=== PATIENT | female | born 1950 | race American Indian/Alaskan Native ===

== ENCOUNTER 2021-02-05 12:51 | Observation (INO) | payer MEDICARE ==
--- NOTE | 2021-02-05 16:02 | Emergency Department Report ---
HPI - General Chief Complaint: Fall Time Seen by Provider: 02/05/21 15:48 - HPI HPI: This is a 70-year-old -[place] female presents to the emergency department via EMS from home with a complaint of the patient having multiple falls over the past few days, as well as some generalized weakness and fatigue. The patient has a history of dementia and has no complaints at this time. I spoke with the patient's daughter, Sheree Dias, who provided collateral information. On Tuesday night, 3 days ago, the patient ate some "old food." That caused her to have some nausea, vomiting and diarrhea going into Tuesday. EMS was called and came to the house to see the patient. They felt that she was dehydrated and gave her some IV fluid but the patient did not require transfer at that time. The nausea with vomiting has stopped but the patient still continues to have some diarrhea or loose stools. Patient's daughter says that she has been sleeping a lot and not wanting to get up out of bed. Because of this she has had some "accidents" in terms of incontinence. Her daughter says that when the patient falls, that she does so slowly, and there is no concerned that she may have hit her head and there has been no loss of consciousness. The patient ambulates with a cane when she goes outside but has been in the house mostly. The patient is vaccinated against COVID-19. Her primary care physician is Dr. Freddie Arciniega. Her daughter also says that today the patient appeared to have some shortness of breath and was given a breathing treatment when EMS arrived. ED Past Medical Hx - Past Medical History Previous Medical History?: Yes Hx Hypertension: Yes Hx Arthritis: Yes Hx Seizures: Yes Hx Dementia: Yes Hx HIV: Yes Additional medical history: Dementia - Social History Smoking Status: Former Smoker - Medications Home Medications: Home Medications Medication Instructions Recorded Confirmed Last Taken Type Amlodipine Besylate 10 mg PO DAILY 05/23/13 02/06/21 05/23/13 09:00 History 10 mg Metoprolol Tartrate 25 mg PO BID 05/23/13 02/06/21 05/23/13 09:00 History 25 mg Nortriptyline HCl 25 mg PO DAILY 05/23/13 02/06/21 05/23/13 09:00 History 25 mg Pravastatin Sodium 40 mg PO DAILY 05/23/13 02/06/21 05/23/13 09:00 History 40 mg carBAMazepine [TEGretol] 200 mg PO BID 05/23/13 02/06/21 05/23/13 09:00 History 200 mg ED Review of Systems ROS: Stated complaint: FALL Other details as noted in HPI Comment: All other systems reviewed and negative Constitutional: weakness. denies: chills, fever Eyes: denies: eye pain, vision change ENT: denies: ear pain, throat pain Respiratory: shortness of breath. denies: cough Cardiovascular: denies: chest pain, palpitations Gastrointestinal: nausea, vomiting, diarrhea. denies: abdominal pain Genitourinary: denies: dysuria, discharge Musculoskeletal: denies: back pain, arthralgia Skin: denies: rash, lesions Neurological: denies: headache, numbness Physical Exam - Physical Exam Vital Signs: Vital Signs 02/05/21 13:05 Temperature 99.1 F Pulse Rate 72 Respiratory 16 Rate Blood Pressure 138/63 [Left] O2 Sat by Pulse 99 Oximetry Physical Exam: GENERAL: The patient is well-developed well-nourished. HENT: Normocephalic. Atraumatic. Patient has moist mucous membranes. EYES: Extraocular motions are intact. No nystagmus. NECK: Supple. Trachea is midline. CHEST/LUNGS: Clear to auscultation. There is no respiratory distress noted. HEART/CARDIOVASCULAR: Regular. There is no tachycardia. There is no murmur. ABDOMEN: Abdomen is soft, nontender. Patient has normal bowel sounds. There is no abdominal distention. SKIN: Skin is warm and dry. NEURO: The patient is awake and cooperative, but confused. AAO x1 to person, but not place or time. The patient has no focal neurologic deficits. Normal speech. MUSCULOSKELETAL: There is no tenderness or deformity. No tenderness with compression of the pelvis. There is no limitation range of motion. BACK: No midline thoracic or lumbar tenderness to palpation. ED Course Vital Signs 02/05/21 13:05 Temperature 99.1 F Pulse Rate 72 Respiratory 16 Rate Blood Pressure 138/63 [Left] O2 Sat by Pulse 99 Oximetry ED Medical Decision Making - Lab Data Result diagrams: 02/06/21 08:18 02/06/21 08:18 Lab Results 02/05/21 02/05/21 02/05/21 Range/Units 16:56 16:56 16:56 WBC 4.3 L (4.5-11.0) K/mm3 RBC 3.88 (3.65-5.03) M/mm3 Hgb 11.2 (10.1-14.3) gm/dl Hct 32.9 (30.3-42.9) % MCV 85 (79-97) fl MCH 29 (28-32) pg MCHC 34 (30-34) % RDW 15.8 H (13.2-15.2) % Plt Count 109 L (140-440) K/mm3 Lymph % (Auto) 16.6 (13.4-35.0) % [place] % (Auto) 8.8 H (0.0-7.3) % Eos % (Auto) 0.7 (0.0-4.3) % Baso % (Auto) 0.2 (0.0-1.8) % Lymph # (Auto) 0.7 L (1.2-5.4) K/mm3 [place] # (Auto) 0.4 (0.0-0.8) K/mm3 Eos # (Auto) 0.0 (0.0-0.4) K/mm3 Baso # (Auto) 0.0 (0.0-0.1) K/mm3 Seg Neutrophils % 73.7 H (40.0-70.0) % Seg Neutrophils # 3.2 (1.8-7.7) K/mm3 Sodium 138 (137-145) mmol/L Potassium 3.1 L (3.6-5.0) mmol/L Chloride 104.2 (98-107) mmol/L Carbon Dioxide 21 L (22-30) mmol/L Anion Gap 16 mmol/L BUN 11 (7-17) mg/dL Creatinine 0.9 (0.6-1.2) mg/dL Estimated GFR > 60 ml/min BUN/Creatinine Ratio 12 % Glucose 88 (65-100) mg/dL Calcium 8.3 L (8.4-10.2) mg/dL Magnesium (1.7-2.3) mg/dL Total Bilirubin 3.30 H (0.1-1.2) mg/dL AST 24 (5-40) units/L ALT 28 (7-56) units/L Alkaline Phosphatase 120 (35-129) units/L Ammonia 47.0 (25-60) umol/L Troponin T (0.00-0.029) ng/mL Total Protein 6.6 (6.3-8.2) g/dL Albumin 2.8 L (3.9-5) g/dL Albumin/Globulin Ratio 0.7 % TSH (0.270-4.200) mlU/mL 02/05/21 02/05/21 02/05/21 Range/Units 16:56 16:56 16:56 WBC (4.5-11.0) K/mm3 RBC (3.65-5.03) M/mm3 Hgb (10.1-14.3) gm/dl Hct (30.3-42.9) % MCV (79-97) fl MCH (28-32) pg MCHC (30-34) % RDW (13.2-15.2) % Plt Count (140-440) K/mm3 Lymph % (Auto) (13.4-35.0) % [place] % (Auto) (0.0-7.3) % Eos % (Auto) (0.0-4.3) % Baso % (Auto) (0.0-1.8) % Lymph # (Auto) (1.2-5.4) K/mm3 [place] # (Auto) (0.0-0.8) K/mm3 Eos # (Auto) (0.0-0.4) K/mm3 Baso # (Auto) (0.0-0.1) K/mm3 Seg Neutrophils % (40.0-70.0) % Seg Neutrophils # (1.8-7.7) K/mm3 Sodium (137-145) mmol/L Potassium (3.6-5.0) mmol/L Chloride (98-107) mmol/L Carbon Dioxide (22-30) mmol/L Anion Gap mmol/L BUN (7-17) mg/dL Creatinine (0.6-1.2) mg/dL Estimated GFR ml/min BUN/Creatinine Ratio % Glucose (65-100) mg/dL Calcium (8.4-10.2) mg/dL Magnesium 1.20 L (1.7-2.3) mg/dL Total Bilirubin (0.1-1.2) mg/dL AST (5-40) units/L ALT (7-56) units/L Alkaline Phosphatase (35-129) units/L Ammonia (25-60) umol/L Troponin T < 0.010 (0.00-0.029) ng/mL Total Protein (6.3-8.2) g/dL Albumin (3.9-5) g/dL Albumin/Globulin Ratio % TSH 1.760 (0.270-4.200) mlU/mL - EKG Data -: EKG Interpreted by Me EKG shows normal: sinus rhythm (PVCs), axis, intervals, QRS complexes (Low voltage), ST-T waves Rate: normal - EKG Data When compared to previous EKG there are: previous EKG unavailable Interpretation: normal EKG (Low voltage, PVCs) - Radiology Data Radiology results: report reviewed, image reviewed interpreted by me: Chest x-ray does not show any acute process. There are no pleural effusions, obvious pneumonia and there is no pneumothorax. Pelvic x-ray does not show any fracture, dislocation, or any acute process. CT cervical spine wo con INDICATION / CLINICAL INFORMATION: 70 years Female; Trauma. TECHNIQUE: Axial CT images of the cervical spine were obtained. Sagittal and coronal reformatted images were produced. All CT scans at this location are performed using CT dose reduction for ALARA by means of automated exposure control. COMPARISON: None available. FINDINGS: POST-SURGICAL CHANGES: None. ALIGNMENT: There is mild curvature the cervical spine, convex toward the left. There is also minimal reversal the cervical lordosis at. However, there is no significant spondylolisthesis at. VERTEBRAE: The motion as well as the beam hardening from the patient's body habitus degrade the image quality at. However, there is no clear CT evidence of acute fracture involving the cervical spine. INTRAVERTEBRAL DISCS: The right facet joint hypertrophy at C2-3 results in moderate right neural foraminal narrowing at. The spondylosis at C3-4 encroaches the left lateral recess at. There is mild narrowing of the proximal left neural foramen. There is mild to moderate right foraminal narrowing at C4-5 at. There is mild left foraminal narrowing at C5-6 and C6-7. No definitive prevertebral soft tissue fluid collections are appreciated. PARASPINAL SOFT TISSUES: No significant abnormality. ADDITIONAL FINDINGS: None. IMPRESSION: 1. There is no clear CT evidence of acute fracture involving the cervical spine. CT head/brain wo con INDICATION / CLINICAL INFORMATION: 70 years Female; Trauma. TECHNIQUE: Routine CT head without contrast. All CT scans at this location are performed using CT dose reduction for ALARA by means of automated exposure co ntrol. COMPARISON: None. FINDINGS: BRAIN / INTRACRANIAL CONTENTS: There is extensive cerebral white matter disease most consistent with advanced microvascular angiopathy. There is moderate cerebral atrophy with associated promi nence of the ventricular system. There is dense calcification along the falx. There is no clear CT evidence of acute intracranial hemorrhage or significant mass effect. ORBITS: No significant abnormality of visualized orbits. SINUSES / MASTOIDS: No significant abnormality in the visualized paranasal sinuses or mastoid air cells. CRANIOCERVICAL JUNCTION: No significant abnormality. ADDITIONAL FINDINGS: None. IMPRESSION: 1. There is extensive microvascular angiopathy without CT ends of acute intracranial hemorrhage. - Medical Decision Making This patient presents to emergency department after she has had some recurrent falls over the past few days. Her daughter tells me that she has been having generalized weakness, increased fatigue, and has not been able to take care of her ADLs. No obvious signs of trauma or deformity. CT scan of the head and cervical spine did not show any fracture, bleed, subluxation, dislocation, or any acute process. Chest x-ray did not show any pneumonia, pleural effusions, pneumothorax, rib fracture, or any acute process. X-ray of the pelvis does not show any fracture, dislocation, or any acute process. The patient's labs shows hypokalemia, hypomagnesemia. The patient has been given potassium and magnesium replacement. We are waiting for a urine sample to test for a urinary tract infection. The patient did have some wheezing heard on examination. She was given a DuoNeb breathing treatment and some Solu-Medrol. The patient's family has been updated regarding her lab and imaging results, as well as the plan for admission. The patient will be an observational admission to start secondary to the recurrent falls, electrolyte derangements, and generalized weakness. She was accepted for admission by the hospitalist, Dr. Gaines. Critical Care Time: No Critical care attestation.: If time is entered above; I have spent that time in minutes in the direct care of this critically ill patient, excluding procedure time. ED Disposition Clinical Impression: Recurrent falls, Weakness, Hypokalemia, Hypocalcemia, UTI (urinary tract infection) Disposition: DC-09 OP ADMIT IP TO THIS HOSP Is pt being admited?: Yes Condition: Fair Time of Disposition: 19:54
--- NOTE | 2021-02-05 16:24 | XRay Report ---
CHEST 1 VIEW 02/05/2021 3:19 PM INDICATION / CLINICAL INFORMATION: Fall, SOB. COMPARISON: None available. FINDINGS: SUPPORT DEVICES: None. HEART / MEDIASTINUM: No significant abnormality. LUNGS / PLEURA: No significant pulmonary or pleural abnormality. No pneumothorax. ADDITIONAL FINDINGS: No significant additional findings. IMPRESSION: 1. No acute findings. Signer Name: Merrill Vilchis MD Signed: 02/05/2021 4:20 PM Workstation Name: [id number]
--- NOTE | 2021-02-05 16:35 | XRay Report ---
Pelvis and right hip 2 views INDICATION: Pain FINDINGS: Right total hip arthroplasty. Calcified lesion pelvis suggest uterine fibroid. Signer Name: Cortes Cordero MD Signed: 02/05/2021 4:31 PM Workstation Name: [id number]
--- NOTE | 2021-02-05 16:53 | Cat Scan Report ---
CT head/brain wo con INDICATION / CLINICAL INFORMATION: 70 years Female; Trauma. TECHNIQUE: Routine CT head without contrast. All CT scans at this location are performed using CT dos e reduction for ALARA by means of automated exposure control. COMPARISON: None. FINDINGS: BRAIN / INTRACRANIAL CONTENTS: There is extensive cerebral white matter disease most consistent with advanced microvascular angiopathy. There is moderate cerebral atrophy with associated prominence of t he ventricular system. There is dense calcification along the falx. There is no clear CT evidence of acute intracranial hemorrhage or significant mass effect. ORBITS: No significant abnormality of visualized orbits. SINUSES / MASTOIDS: No significant abnormality in the visualized paranasal sinuses or mastoid air roshan ls. CRANIOCERVICAL JUNCTION: No significant abnormality. ADDITIONAL FINDINGS: None. IMPRESSION: 1. There is extensive microvascular angiopathy without CT ends of acute intracranial hemorrhage. Signer Name: Gregorio Jacobs MD Signed: 02/05/2021 4:49 PM Workstation Name: [id number]
--- NOTE | 2021-02-05 16:57 | Cat Scan Report ---
CT cervical spine wo con INDICATION / CLINICAL INFORMATION: 70 years Female; Trauma. TECHNIQUE: Axial CT images of the cervical spine were obtained. Sagittal and coronal reformatted images were pr oduced. All CT scans at this location are performed using CT dose reduction for ALARA by means of aut omated exposure control. COMPARISON: None available. FINDINGS: POST-SURGICAL CHANGES: None. ALIGNMENT: There is mild curvature the cervical spine, convex toward the left. There is also minimal reversal the cervical lordosis at. However, there is no significant spondylolisthesis at. VERTEBRAE: The motion as well as the beam hardening from the patient's body habitus degrade the image quality at. However, there is no clear CT evidence of acute fracture involving the cervical spine. INTRAVERTEBRAL DISCS: The right facet joint hypertrophy at C2-3 results in moderate right neural fora sybil narrowing at. The spondylosis at C3-4 encroaches the left lateral recess at. There is mild narr owing of the proximal left neural foramen. There is mild to moderate right foraminal narrowing at C4-5 at. There is mild left foraminal narrowin g at C5-6 and C6-7. No definitive prevertebral soft tissue fluid collections are appreciated. PARASPINAL SOFT TISSUES: No significant abnormality. ADDITIONAL FINDINGS: None. IMPRESSION: 1. There is no clear CT evidence of acute fracture involving the cervical spine. Signer Name: Gregorio Jacobs MD Signed: 02/05/2021 4:53 PM Workstation Name: [id number]
[2021-02-05 17:17] LABS: Basophils % (Auto) 0.2 % (0.0-1.8); Eosinophils % (Auto) 0.7 % (0.0-4.3); Hematocrit 32.9 % (30.3-42.9); Hemoglobin 11.2 gm/dl (10.1-14.3); Lymphocytes # (Auto) 0.7 K/mm3 (1.2-5.4); Lymphocytes % (Auto) 16.6 % (13.4-35.0); Mean Corpuscular HGB Conc 34 % (30-34); Mean Corpuscular Volume 85 fl (79-97); Monocytes # (Auto) 0.4 K/mm3 (0.0-0.8); Monocytes % (Auto) 8.8 % (0.0-7.3); Platelet Count 109 K/mm3 (140-440); Red Blood Count 3.88 M/mm3 (3.65-5.03); Red Cell Distribution Width 15.8 % (13.2-15.2)
[2021-02-05 17:34] LABS: Alanine Aminotransferase 28 units/L (7-56); Albumin 2.8 g/dL (3.9-5); BUN/Creatinine Ratio 12; Blood Urea Nitrogen 11 mg/dL (7-17); Calcium 8.3 mg/dL (8.4-10.2); Hemolysis Index 2
[2021-02-05] MEDS ORDERED: POTASSIUM CHLORIDE ER 20 MEQ TAB PO ONE ×2 (17:43→21:41)
[2021-02-05] MEDS ORDERED: MAGNESIUM SULFATE 2 GM/50 ML BAG IV ONE (18:01)
[2021-02-05] MEDS ORDERED: IPRATROPIUM/ALBUTEROL SULFATE 3 ML AMPUL.NEB IH ONE (18:22)
[2021-02-05] MEDS ORDERED: methylPREDNISolone Sod Succinate 125 MG/2 ML INJ IV ONE (18:24)
--- NOTE | 2021-02-05 19:59 | History and Physical Report ---
History of Present Illness Date of examination: 02/05/21 Date of admission: 02/05/2021 Chief complaint: Frequent falls for 1 week History of present illness: 76-year-old -[place] female with history of hypertension, arthritis, seizures, early dementia and hyperlipidemia on statins comes in for frequent falls. Patient is a walker but has been falling frequently over the last 1 week. Patient had nausea vomiting and diarrhea couple days ago which resolved by itself. She attributed to food poisoning. As per the daughter patient has been sleeping a lot and not wanting to get out of bed. Also frequent falls and urinary incontinence. Patient ambulates with a cane and still very uses walker. Patient is vaccinated. COVID-19. Her primary care physician is Dr. Arciniega. No fever or chills. - Past Medical History Previous Medical History?: Yes --Hypertension: Yes --Arthritis: Yes --Seizures: Yes --Dementia: Yes --HIV: Yes --Additional medical history: Dementia Surgical history N/a - Social History Smoking Status: Former Smoker Family history Htn - Medications Home Medications: Home Medications Medication Instructions Recorded Confirmed Last Taken Type Amlodipine Besylate 10 mg PO DAILY 05/23/13 05/23/13 05/23/13 09:00 History 10 mg Didanosine 400 mg PO DAILY 05/23/13 05/23/13 05/23/13 09:00 History 400 mg Metoprolol Tartrate 25 mg PO BID 05/23/13 05/23/13 05/23/13 09:00 History 25 mg Nevirapine [Viramune Xr] 400 mg PO DAILY 05/23/13 05/23/13 05/23/13 09:00 History 400 mg Nortriptyline HCl 25 mg PO DAILY 05/23/13 05/23/13 05/23/13 09:00 History 25 mg Pravastatin Sodium 40 mg PO DAILY 05/23/13 05/23/13 05/23/13 09:00 History 40 mg carBAMazepine [TEGretol] 200 mg PO 05/23/13 05/23/13 05/23/13 09:00 History 200 mg lamiVUDine [Lamivudine] 300 mg PO DAILY 05/23/13 05/23/13 05/23/13 09:00 History 300 mg Review of Systems ROS: Stated complaint: FALL Other details as noted in HPI Comment: All other systems reviewed and negative Constitutional: weakness. denies: chills, fever Eyes: denies: eye pain, vision change ENT: denies: ear pain, throat pain Respiratory: shortness of breath. denies: cough Cardiovascular: denies: chest pain, palpitations Gastrointestinal: nausea, vomiting, diarrhea. denies: abdominal pain Genitourinary: denies: dysuria, discharge Musculoskeletal: denies: back pain, arthralgia Skin: denies: rash, lesions Neurological: Frequent falls and weakness in both lower extremities Medications and Allergies Allergies Allergy/AdvReac Type Severity Reaction Status Date / Time Sulfa (Sulfonamide AdvReac Unknown Unverified 05/23/13 13:01 Antibiotics) Home Medications Medication Instructions Recorded Confirmed Last Taken Type Amlodipine Besylate 10 mg PO DAILY 05/23/13 02/06/21 05/23/13 09:00 History 10 mg Metoprolol Tartrate 25 mg PO BID 05/23/13 02/06/21 05/23/13 09:00 History 25 mg Nortriptyline HCl 25 mg PO DAILY 05/23/13 02/06/21 05/23/13 09:00 History 25 mg Pravastatin Sodium 40 mg PO DAILY 05/23/13 02/06/21 05/23/13 09:00 History 40 mg carBAMazepine [TEGretol] 200 mg PO BID 05/23/13 02/06/21 05/23/13 09:00 History 200 mg Exam - Constitutional Vitals: Temp Pulse Resp BP Pulse Ox 98.3 F 71 15 120/60 95 02/05/21 17:31 02/05/21 17:46 02/05/21 17:46 02/05/21 17:46 02/05/21 17:31 General appearance: Present: well-nourished - EENT Eyes: Present: PERRL ENT: hearing intact, clear oral mucosa - Neck Neck: Present: supple, normal ROM - Respiratory Respiratory effort: normal, labored Respiratory: bilateral: CTA - Cardiovascular Heart rate: 78 Rhythm: regular Heart Sounds: Present: S1 & S2. Absent: rub, click - Extremities Extremities: no ischemia, pulses intact, pulses symmetrical, No edema, normal temperature, normal color, Full ROM Peripheral Pulses: within normal limits - Abdominal General gastrointestinal: Present: soft, non-tender, non-distended, normal bowel sounds Female genitourinary: Present: normal - Integumentary Integumentary: Present: clear, warm, dry - Musculoskeletal Musculoskeletal: generalized weakness - Psychiatric Psychiatric: appropriate mood/affect, intact judgment & insight - Neurologic Neurologic: CNII-XII intact, moves all extremities, gait normal (Able to walk but with a tendency to fall), other - Allied Health Allied health notes reviewed: nursing, case management HEART Score - HEART Score Troponin: Troponin T < 0.010 ng/mL (0.00-0.029) 02/05/21 16:56 Results - Labs CBC & Chem 7: 02/05/21 16:56 02/05/21 16:56 Labs: Laboratory Last Values WBC 4.3 K/mm3 (4.5-11.0) L 02/05/21 16:56 RBC 3.88 M/mm3 (3.65-5.03) 02/05/21 16:56 Hgb 11.2 gm/dl (10.1-14.3) 02/05/21 16:56 Hct 32.9 % (30.3-42.9) 02/05/21 16:56 MCV 85 fl (79-97) 02/05/21 16:56 MCH 29 pg (28-32) 02/05/21 16:56 MCHC 34 % (30-34) 02/05/21 16:56 RDW 15.8 % (13.2-15.2) H 02/05/21 16:56 Plt Count 109 K/mm3 (140-440) L 02/05/21 16:56 Lymph % (Auto) 16.6 % (13.4-35.0) 02/05/21 16:56 [place] % (Auto) 8.8 % (0.0-7.3) H 02/05/21 16:56 Eos % (Auto) 0.7 % (0.0-4.3) 02/05/21 16:56 Baso % (Auto) 0.2 % (0.0-1.8) 02/05/21 16:56 Lymph # (Auto) 0.7 K/mm3 (1.2-5.4) L 02/05/21 16:56 [place] # (Auto) 0.4 K/mm3 (0.0-0.8) 02/05/21 16:56 Eos # (Auto) 0.0 K/mm3 (0.0-0.4) 02/05/21 16:56 Baso # (Auto) 0.0 K/mm3 (0.0-0.1) 02/05/21 16:56 Seg Neutrophils % 73.7 % (40.0-70.0) H 02/05/21 16:56 Seg Neutrophils # 3.2 K/mm3 (1.8-7.7) 02/05/21 16:56 Sodium 138 mmol/L (137-145) 02/05/21 16:56 Potassium 3.1 mmol/L (3.6-5.0) L 02/05/21 16:56 Chloride 104.2 mmol/L (98-107) 02/05/21 16:56 Carbon Dioxide 21 mmol/L (22-30) L 02/05/21 16:56 Anion Gap 16 mmol/L 02/05/21 16:56 BUN 11 mg/dL (7-17) 02/05/21 16:56 Creatinine 0.9 mg/dL (0.6-1.2) 02/05/21 16:56 Estimated GFR > 60 ml/min 02/05/21 16:56 BUN/Creatinine Ratio 12 % 02/05/21 16:56 Glucose 88 mg/dL (65-100) 02/05/21 16:56 Calcium 8.3 mg/dL (8.4-10.2) L 02/05/21 16:56 Magnesium 1.20 mg/dL (1.7-2.3) L 02/05/21 16:56 Total Bilirubin 3.30 mg/dL (0.1-1.2) H 02/05/21 16:56 AST 24 units/L (5-40) 02/05/21 16:56 ALT 28 units/L (7-56) 02/05/21 16:56 Alkaline Phosphatase 120 units/L (35-129) 02/05/21 16:56 Ammonia 47.0 umol/L (25-60) 02/05/21 16:56 Troponin T < 0.010 ng/mL (0.00-0.029) 02/05/21 16:56 Total Protein 6.6 g/dL (6.3-8.2) 02/05/21 16:56 Albumin 2.8 g/dL (3.9-5) L 02/05/21 16:56 Albumin/Globulin Ratio 0.7 % 02/05/21 16:56 TSH 1.760 mlU/mL (0.270-4.200) 02/05/21 16:56 Short CBC 02/05/21 Range/Units 16:56 WBC 4.3 L (4.5-11.0) K/mm3 Hgb 11.2 (10.1-14.3) gm/dl Hct 32.9 (30.3-42.9) % Plt Count 109 L (140-440) K/mm3 BMP 02/05/21 16:56 Sodium 138 Potassium 3.1 L Chloride 104.2 Carbon Dioxide 21 L BUN 11 Creatinine 0.9 Glucose 88 Calcium 8.3 L Cardiac Enzymes 02/05/21 Range/Units 16:56 Troponin T < 0.010 (0.00-0.029) ng/mL Liver Function 02/05/21 Range/Units 16:56 Total Bilirubin 3.30 H (0.1-1.2) mg/dL AST 24 (5-40) units/L ALT 28 (7-56) units/L Alkaline Phosphatase 120 (35-129) units/L Albumin 2.8 L (3.9-5) g/dL Urine 02/05/21 Range/Units 23:17 Urine Color Tash (Yellow) Urine pH 6.0 (5.0-7.0) Ur Specific [place] 1.028 (1.003-1.030) Urine Protein 100 mg/dl (Negative) mg/dL Urine Glucose (UA) Neg (Negative) mg/dL - Imaging and Cardiology EKG: report reviewed (Sinus rhythm no acute ST-T wave changes) Imaging and Cardiology: Cervical spine CT There is no clear CT evidence of acute fracture involving the cervical spine Chest x-ray No acute findings Head CT Extensive microvascular angiopathy without CT evidence of acute intracranial hemorrhage Pelvis x-rays Right total hip arthroplasty Calcified lesion of pelvis suggest uterus fibroid or fibroids Assessment and Plan Advance Directives: Yes (Full code) Plan of care discussed with patient/family: Yes - Patient Problems (1) Recurrent falls Current Visit: Yes Status: Acute Plan to address problem: Possible myopathy secondary to statins Check CK and aldolase Physical therapy initiated (2) Hypertension Current Visit: Yes Status: Chronic Qualifiers: Hypertension type: primary hypertension Qualified Code(s): I10 - Essential (primary) hypertension Plan to address problem: Continue antihypertensives (3) Arthritis Current Visit: Yes Status: Acute Plan to address problem: On nonsteroidals (4) Seizure disorder Current Visit: Yes Status: Acute (5) HIV (human immunodeficiency virus infection) Current Visit: Yes Status: Chronic Qualifiers: HIV symptom status: asymptomatic, with no history of HIV-related illness Qualified Code(s): Z21 - Asymptomatic human immunodeficiency virus [HIV] infection status Plan to address problem: Continue antiretrovirals (6) Statin myopathy Current Visit: Yes Status: Acute Plan to address problem: Stop the statins Check CPK and aldolase (7) Hypokalemia Current Visit: Yes Status: Acute Plan to address problem: Supplemented (8) Hypomagnesemia Current Visit: Yes Status: Acute Plan to address problem: Supplemented (9) Hypocalcemia Current Visit: Yes Status: Acute Plan to address problem: Supplemented (10) DVT prophylaxis Current Visit: Yes Status: Acute Plan to address problem: On heparin and GI prophylaxis
[2021-02-05] MEDS ORDERED: oxyCODONE /ACETAMINOPHEN 5-325MG TAB PO PRN (21:36)
[2021-02-05] MEDS ORDERED: HYDROmorphone 1 MG/1 ML INJ IV PRN (21:36)
[2021-02-05] MEDS ORDERED: METOCLOPRAMIDE 10 MG/2 ML INJ IV PRN (21:36)
[2021-02-05] MEDS ORDERED: ONDANSETRON 4 MG/2 ML INJ IV PRN (21:36)
[2021-02-05] MEDS ORDERED: ACETAMINOPHEN 325 MG TAB PO PRN (21:36)
[2021-02-05] MEDS ORDERED: NEVIRAPINE 400 MG PO SCH (21:45)
[2021-02-05] MEDS ORDERED: LAMIVUDINE 300 MG PO SCH (21:45)
[2021-02-05] MEDS ORDERED: DIDANOSINE 400 MG PO SCH (21:45)
[2021-02-05] MEDS: MAGNESIUM SULFATE 2 GM/50 ML BAG IV ONE ×2 (21:50→23:08)
[2021-02-05 23:35] LABS: Bacteria,Urine 1+ /HPF (Negative); Bilirubin,Urine MOD (Negative); Blood,Urine MOD (Negative); Color,Urine Amber (Yellow); Mucus,Urine 1+ /HPF
[2021-02-05 23:36] LABS: Ictotest,Urine Positive (Negative)
[2021-02-06] MEDS: amLODIPine 10 MG TAB PO SCH ×2 (01:56→11:36)
[2021-02-06] MEDS: METOPROLOL TARTRATE 25 MG TAB PO SCH ×3 (01:57→21:04)
[2021-02-06] MEDS: carBAMazepine 200 MG TAB PO SCH ×3 (02:03→21:17)
[2021-02-06] MEDS: SODIUM CHLORIDE 0.9% 1000 ML 1,000 ML IV SCH ×2 (02:09→17:15)
[2021-02-06] MEDS: HEPARIN 5,000 UNIT/1 ML VIAL SUB-Q SCH ×3 (02:12→21:06)
[2021-02-06] MEDS: FAMOTIDINE 20 MG/2 ML INJ IV SCH ×3 (02:12→21:03)
[2021-02-06 08:44] LABS: Basophils % (Auto) 0.2 % (0.0-1.8); Hematocrit 32.1 % (30.3-42.9); Hemoglobin 11.1 gm/dl (10.1-14.3); Lymphocytes # (Auto) 0.7 K/mm3 (1.2-5.4); Lymphocytes % (Auto) 16.1 % (13.4-35.0); Mean Corpuscular HGB Conc 35 % (30-34); Mean Corpuscular Volume 83 fl (79-97); Monocytes # (Auto) 0.1 K/mm3 (0.0-0.8); Monocytes % (Auto) 3.3 % (0.0-7.3); Platelet Count 118 K/mm3 (140-440); Red Blood Count 3.84 M/mm3 (3.65-5.03); Red Cell Distribution Width 15.7 % (13.2-15.2)
[2021-02-06] MEDS ORDERED: MAGNESIUM SULFATE 2 GM/50 ML BAG IV ONE ×3 (09:00→21:06)
[2021-02-06] MEDS ORDERED: POTASSIUM CHLORIDE ER 20 MEQ TAB PO SCH (09:00)
[2021-02-06 09:06] LABS: Alanine Aminotransferase 25 units/L (7-56); Albumin 2.8 g/dL (3.9-5); Blood Urea Nitrogen 14 mg/dL (7-17); Calcium 8.5 mg/dL (8.4-10.2); Hemolysis Index 5
[2021-02-06 09:22] LABS: BUN/Creatinine Ratio 20
[2021-02-06] MEDS ORDERED: CALCIUM GLUCONATE 2,000 MG in SODIUM CHLORIDE 0.9% 100 ML IV ONE (09:30)
[2021-02-06] MEDS: NORTRIPTYLINE 25 MG CAP PO SCH (11:36)
--- NOTE | 2021-02-06 12:29 | Consultation ---
History of Present Illness - Reason for Consult Consult date: 02/06/21 antiretrovirals and myopathy Requesting physician: RAJESH HAMILTON - History of Present Illness The patient is a 70-year-old female with hypertension, seizure disorder, dementia, HIV admitted to the hospital due to fall at home. It seems, patient was also having some nausea and vomiting and some loose stools at home that started after patient ate some old food lying in her refrigerator. Patient is vaccinated against COVID-19. Upon evaluation in the ER, labs showed borderline leukopenia with WBC of 4.3, platelets 118, question of myopathy was raised and infectious diseases was consulted to also evaluate her antiretroviral therapy. UA showed borderline pyuria with 10 WBC, cultures are in process. Patient has been afebrile. Patient is not the best of historians. I called patient's daughter on the phone, she provided additional history. Patient has been HIV positive since the , follows up with Dr. Mayer. Since the last 2 years, she has been on oral Biktarvy, is well controlled, undetectable for the last several years. Review of Systems: General: no fevers,chills or rigors. Weakness overall. HEENT: no new visual disturbance Respiratory: No cough, sputum, hemoptysis or shortness of breath Cardiovascular: No chest pain, syncope Gastrointestinal: No nausea, vomiting or diarrhea Genitourinary: No dysuria or hematuria Musculoskeletal: No new or worsening neck pain or back pain Neurologic: No headaches, seizures Hematologic: No easy bruising or bleeding Endocrine: No night sweats or acute weight loss Skin: negative for rash, jaundice Psychiatric: No suicidal or homicidal ideation Medications and Allergies Allergies Allergy/AdvReac Type Severity Reaction Status Date / Time Sulfa (Sulfonamide AdvReac Unknown Unverified 05/23/13 13:01 Antibiotics) Home Medications Medication Instructions Recorded Confirmed Last Taken Type Amlodipine Besylate 10 mg PO DAILY 05/23/13 02/06/21 05/23/13 09:00 History 10 mg Metoprolol Tartrate 25 mg PO BID 05/23/13 02/06/21 05/23/13 09:00 History 25 mg Nortriptyline HCl 25 mg PO DAILY 05/23/13 02/06/21 05/23/13 09:00 History 25 mg Pravastatin Sodium 40 mg PO DAILY 05/23/13 02/06/21 05/23/13 09:00 History 40 mg carBAMazepine [TEGretol] 200 mg PO BID 05/23/13 02/06/21 05/23/13 09:00 History 200 mg Active Meds: Active Medications Acetaminophen (Acetaminophen 325 Mg Tab) 650 mg PO Q4H PRN PRN Reason: Pain MILD(1-3)/Fever >100.5/[place] Amlodipine Besylate (Amlodipine 10 Mg Tab) 10 mg PO DAILY [facility] Last Admin: 02/06/21 11:36 Dose: 10 mg Documented by: Carbamazepine (Carbamazepine 200 Mg Tab) 200 mg PO Q12H [facility] Last Admin: 02/06/21 11:35 Dose: 200 mg Documented by: Famotidine (Famotidine 20 Mg/2 Ml Inj) 20 mg IV BID [facility] Last Admin: 02/06/21 11:33 Dose: 20 mg Documented by: Heparin Sodium (Porcine) (Heparin 5,000 Unit/1 Ml Vial) 5,000 unit SUB-Q Q12HR [facility] Last Admin: 02/06/21 11:33 Dose: 5,000 unit Documented by: Hydromorphone HCl (Hydromorphone 1 Mg/1 Ml Inj) 0.5 mg IV Q3H PRN PRN Reason: Pain , Severe (7-10) Sodium Chloride (Nacl 0.9% 1000 Ml) 1,000 mls @ 100 mls/hr IV DIRECT [facility] Last Admin: 02/06/21 02:09 Dose: 100 mls/hr Documented by: Metoclopramide HCl (Metoclopramide 10 Mg/2 Ml Inj) 10 mg IV Q6H PRN PRN Reason: Nausea And Vomiting Metoprolol Tartrate (Metoprolol Tartrate 25 Mg Tab) 25 mg PO BID [facility] Last Admin: 02/06/21 11:35 Dose: 25 mg Documented by: Nortriptyline HCl (Nortriptyline 25 Mg Cap) 25 mg PO DAILY [facility] Last Admin: 02/06/21 11:36 Dose: 25 mg Documented by: Ondansetron HCl (Ondansetron 4 Mg/2 Ml Inj) 4 mg IV Q8H PRN PRN Reason: Nausea And Vomiting Oxycodone/Acetaminophen (Oxycodone /Acetaminophen 5-325mg Tab) 1 tab PO Q6H PRN PRN Reason: Pain, Moderate (4-6) Sodium Chloride (Sodium Chloride 0.9% 10 Ml Flush Syringe) 10 ml IV BID [facility] Last Admin: 02/06/21 11:36 Dose: Not Given Documented by: Sodium Chloride (Sodium Chloride 0.9% 10 Ml Flush Syringe) 10 ml IV PRN PRN PRN Reason: LINE FLUSH Physical Examination - Physical Exam Narrative exam: Physical Exam: Constitutional: Alert, cooperative. No acute distress Head, Ears, Nose: Normocephalic, atraumatic. External ears, nose normal Eyes: Conjunctivae/corneas clear. No icterus. No ptosis. Neck: Supple, no meningeal signs Cardiovascular: S1, S2 + Respiratory: Good air entry, clear to auscultation bilaterally GI: Soft, non-tender; bowel sounds normal. No peritoneal signs Musculoskeletal: No pedal edema, no cyanosis. Skin: No rash or abscess Hem/Lymphatic: No palpable cervical or supraclavicular nodes. No lymphangitis Psych: Mood ok. Affect normal Neurological: Awake, alert, oriented. No gross abnormality - Constitutional Vitals: Vital Signs Temp Pulse Resp BP Pulse Ox 97.6 F 60 18 119/47 97 02/06/21 11:11 02/06/21 11:36 02/06/21 11:11 02/06/21 11:36 02/06/21 11:11 Temperature -Last 24 Hours Temperature 97.6 F Temperature 97.6 F Temperature 98.0 F Temperature 97.7 F Temperature 98.3 F Temperature 98.7 F Temperature 99.1 F Results - Labs CBC & Chem 7: 02/06/21 08:18 02/06/21 08:18 Labs: Abnormal lab results 02/05/21 02/05/21 02/05/21 Range/Units 16:56 16:56 16:56 WBC 4.3 L (4.5-11.0) K/mm3 MCHC (30-34) % RDW 15.8 H (13.2-15.2) % Plt Count 109 L (140-440) K/mm3 [place] % (Auto) 8.8 H (0.0-7.3) % Lymph # (Auto) 0.7 L (1.2-5.4) K/mm3 Seg Neutrophils % 73.7 H (40.0-70.0) % Sodium (137-145) mmol/L Potassium 3.1 L (3.6-5.0) mmol/L Carbon Dioxide 21 L (22-30) mmol/L Glucose (65-100) mg/dL Calcium 8.3 L (8.4-10.2) mg/dL Magnesium 1.20 L (1.7-2.3) mg/dL Total Bilirubin 3.30 H (0.1-1.2) mg/dL Albumin 2.8 L (3.9-5) g/dL Urine WBC (Auto) (0.0-6.0) /HPF 02/05/21 02/06/21 02/06/21 Range/Units 23:17 08:18 08:18 WBC 4.3 L (4.5-11.0) K/mm3 MCHC 35 H (30-34) % RDW 15.7 H (13.2-15.2) % Plt Count 118 L (140-440) K/mm3 [place] % (Auto) (0.0-7.3) % Lymph # (Auto) 0.7 L (1.2-5.4) K/mm3 Seg Neutrophils % 80.4 H (40.0-70.0) % Sodium 136 L (137-145) mmol/L Potassium (3.6-5.0) mmol/L Carbon Dioxide 18 L (22-30) mmol/L Glucose 229 H (65-100) mg/dL Calcium (8.4-10.2) mg/dL Magnesium (1.7-2.3) mg/dL Total Bilirubin 2.50 H (0.1-1.2) mg/dL Albumin 2.8 L (3.9-5) g/dL Urine WBC (Auto) 10.0 H (0.0-6.0) /HPF - Imaging and Cardiology Chest x-ray: report reviewed, image reviewed (no pneumonia) Assessment and Plan Cultures: 02/05/2021 urine culture: In process A/P: 70-year-old female with hypertension, seizure disorder, dementia, HIV admitted to the hospital due to fall at home: #Recurrent falls, question of myopathy: probably dehydration from GI illness that developed following consumption of old food in fridge. CPK, aldolase pending. CT head showed extensive microvascular angiopathy, no acute findings. #Mild leucopenia, thrombocytopenia: baseline unknown. #HIV: Patient is not the best of historians. I called patient's daughter on the phone, she provided additional history. Patient has been HIV positive since the , follows up with Dr. Mayer. Since the last 2 years, she has been on oral Biktarvy, is well controlled, undetectable for the last several years. #Dementia Recs: No major concerns from an ID standpoint. Continue PO Biktarvy, nonformulary drug, daughter will be bringing it in later today. ID will sign off. Please call with questions. Nelson Tim MD, FACP [facility] ([facility] O: [phone] F: [phone]
[2021-02-06] MEDS ORDERED: EMTRICITABINE 200 MG PO SCH (14:00)
[2021-02-06] MEDS ORDERED: DOLUTEGRAVIR 50 MG PO SCH (14:00)
[2021-02-06] MEDS: EMTRICITABINE 200 MG CAP PO SCH (15:03)
[2021-02-06] MEDS: DOLUTEGRAVIR 50 MG TAB PO SCH (15:03)
--- NOTE | 2021-02-06 17:54 | Electrocardiograph Report ---
[facility] Test Date: 2021-02-05 Test Time: 17:45:13 Pat Name: RAYNE SAMANIEGO Department: Room: B317 1 Gender: F Computational Geneticist: HUMBERTO : 1950 Requested By: WALKER COLLINS Order Number: [id number] Reading MD: Manfred Gallardo Measurements Intervals [place] Rate: 72 P: -6 IA: 161 QRS: 49 QRSD: 78 T: 65 QT: 423 QTc: 462 Interpretive Statements Sinus rhythm,P waves are indistinct Ventricular premature complex Low voltage, precordial leads No previous ECG available for comparison Electronically Signed On 02-06-2021 17:53:38 EDT by Manfred Gallardo
[2021-02-06] MEDS ORDERED: ALBUTEROL 2.5 MG/3 ML NEBU IH PRN (19:37)
[2021-02-06] MEDS ORDERED: ALBUTEROL 2.5 MG/3 ML NEBU IH ONE (19:42)
[2021-02-06] MEDS ORDERED: IPRATROPIUM/ALBUTEROL SULFATE 3 ML AMPUL.NEB IH PRN (20:06)
--- NOTE | 2021-02-06 20:14 | Progress Note ---
Assessment and Plan - Patient Problems (1) Recurrent falls Status: Acute Plan to address problem: Possible myopathy secondary to statins Check CK and aldolase Physical therapy initiated (2) Hypertension Status: Chronic Qualifiers: Hypertension type: primary hypertension Qualified Code(s): I10 - Essential (primary) hypertension Plan to address problem: Continue antihypertensives (3) Arthritis Status: Acute Plan to address problem: On nonsteroidals (4) Seizure disorder Status: Acute (5) HIV (human immunodeficiency virus infection) Status: Chronic Qualifiers: HIV symptom status: asymptomatic, with no history of HIV-related illness Qualified Code(s): Z21 - Asymptomatic human immunodeficiency virus [HIV] infection status Plan to address problem: Continue antiretrovirals (6) Statin myopathy Status: Acute Plan to address problem: Stop the statins Check CPK and aldolase (7) Hypokalemia Status: Acute Plan to address problem: Supplemented (8) Hypomagnesemia Status: Acute Plan to address problem: Supplemented (9) Hypocalcemia Status: Acute Plan to address problem: Supplemented (10) DVT prophylaxis Status: Acute Plan to address problem: On heparin and GI prophylaxis Subjective Date of service: 02/06/21 Principal diagnosis: Recurrent falls and debility Interval history: 76-year-old -[place] female with history of hypertension, arthritis, seizures, early dementia and hyperlipidemia on statins comes in for frequent falls. Patient has a walker but has been falling frequently over the last 1 week. Patient had nausea vomiting and diarrhea couple days ago which resolved by itself. She attributed to food poisoning. As per the daughter patient has been sleeping a lot and not wanting to get out of bed. Also frequent falls and urinary incontinence. Patient ambulates with a cane and sometimes uses walker. Patient is vaccinated With COVID-19 vaccine. Her primary care physician is Dr. Arciniega. No fever or chills. 02/06/2021 Patient feels stronger Statin stopped Electrolytes corrected including potassium and magnesium Objective - Constitutional Vitals: Vital Signs - 12hr 02/06/21 02/06/21 02/06/21 11:11 11:35 11:36 Temperature 97.6 F Pulse Rate 60 60 60 Pulse Rate [ Bilateral Throughout] Respiratory 18 Rate Respiratory Rate [Bilateral Throughout] Blood Pressure 119/47 119/47 119/47 O2 Sat by Pulse 97 Oximetry 02/06/21 02/06/21 16:37 19:39 Temperature 98.4 F Pulse Rate 61 Pulse Rate [ 68 Bilateral Throughout] Respiratory 20 Rate Respiratory 20 Rate [Bilateral Throughout] Blood Pressure 100/61 O2 Sat by Pulse 93 Oximetry General appearance: Present: no acute distress, well-nourished - EENT Eyes: PERRL, EOM intact ENT: hearing intact, clear oral mucosa Ears: bilateral: normal - Neck Neck: supple, normal ROM - Respiratory Respiratory effort: normal Respiratory: bilateral: CTA - Breasts Breasts: normal - Cardiovascular Heart rate: 78 Rhythm: regular Heart Sounds: Present: S1 & S2. Absent: gallop, rub Extremities: pulses intact, No edema, normal color, Full ROM - Gastrointestinal General gastrointestinal: Present: soft, non-tender, non-distended, normal bowel sounds - Genitourinary Female genitourinary: normal - Integumentary Integumentary: clear, warm, dry - Musculoskeletal Musculoskeletal: generalized weakness - Neurologic Neurologic: moves all extremities, other (Power is 4/5 power in both lower extremities) - Psychiatric Psychiatric: memory intact, appropriate mood/affect, intact judgment & insight - Labs CBC & Chem 7: 02/07/21 04:34 02/07/21 04:34 Labs: Abnormal lab results 02/05/21 02/06/21 02/06/21 Range/Units 23:17 08:18 08:18 WBC 4.3 L (4.5-11.0) K/mm3 MCHC 35 H (30-34) % RDW 15.7 H (13.2-15.2) % Plt Count 118 L (140-440) K/mm3 Lymph # (Auto) 0.7 L (1.2-5.4) K/mm3 Seg Neutrophils % 80.4 H (40.0-70.0) % Sodium 136 L (137-145) mmol/L Carbon Dioxide 18 L (22-30) mmol/L Glucose 229 H (65-100) mg/dL Total Bilirubin 2.50 H (0.1-1.2) mg/dL Albumin 2.8 L (3.9-5) g/dL Urine WBC (Auto) 10.0 H (0.0-6.0) /HPF HEART Score - HEART Score Troponin: Troponin T < 0.010 ng/mL (0.00-0.029) 02/05/21 16:56
[2021-02-06] MEDS: methylPREDNISolone Sod Succinate 40 MG/1 ML INJ IV SCH (21:03)
[2021-02-07] MEDS ORDERED: FUROSEMIDE 40 MG/4 ML INJ IV ONE (04:45)
[2021-02-07] MEDS: methylPREDNISolone Sod Succinate 40 MG/1 ML INJ IV SCH ×3 (05:12→22:47)
[2021-02-07 05:33] LABS: Basophils % (Auto) 0.1 % (0.0-1.8); Hematocrit 32.1 % (30.3-42.9); Hemoglobin 10.9 gm/dl (10.1-14.3); Lymphocytes # (Auto) 0.8 K/mm3 (1.2-5.4); Lymphocytes % (Auto) 11.6 % (13.4-35.0); Mean Corpuscular HGB Conc 34 % (30-34); Mean Corpuscular Volume 84 fl (79-97); Monocytes # (Auto) 0.3 K/mm3 (0.0-0.8); Monocytes % (Auto) 5.2 % (0.0-7.3); Platelet Count 149 K/mm3 (140-440); Red Blood Count 3.82 M/mm3 (3.65-5.03); Red Cell Distribution Width 16.2 % (13.2-15.2)
[2021-02-07 05:52] LABS: Alanine Aminotransferase 21 units/L (7-56); Blood Urea Nitrogen 12 mg/dL (7-17); Calcium 8.9 mg/dL (8.4-10.2); Hemolysis Index 3
[2021-02-07 05:59] LABS: BUN/Creatinine Ratio 20
[2021-02-07] MEDS ORDERED: IPRATROPIUM/ALBUTEROL SULFATE 3 ML AMPUL.NEB IH SCH (08:00)
[2021-02-07] MEDS: HEPARIN 5,000 UNIT/1 ML VIAL SUB-Q SCH ×2 (09:16→22:00)
[2021-02-07] MEDS: FAMOTIDINE 20 MG/2 ML INJ IV SCH ×2 (09:16→22:47)
[2021-02-07] MEDS: EMTRICITABINE 200 MG CAP PO SCH (09:17)
[2021-02-07] MEDS: NORTRIPTYLINE 25 MG CAP PO SCH (09:18)
[2021-02-07] MEDS: DOLUTEGRAVIR 50 MG TAB PO SCH (09:18)
[2021-02-07] MEDS: carBAMazepine 200 MG TAB PO SCH ×2 (09:18→22:48)
[2021-02-07] MEDS: METOPROLOL TARTRATE 25 MG TAB PO SCH ×2 (09:20→22:53)
[2021-02-07] MEDS: amLODIPine 10 MG TAB PO SCH (09:21)
[2021-02-07] MEDS: IPRATROPIUM/ALBUTEROL SULFATE 3 ML AMPUL.NEB IH SCH ×2 (14:21→21:35)
--- NOTE | 2021-02-07 17:09 | Progress Note ---
Assessment and Plan - Patient Problems (1) Recurrent falls Status: Acute Plan to address problem: Possible myopathy secondary to statins Check CK and aldolase Physical therapy initiated (2) Hypertension Status: Chronic Qualifiers: Hypertension type: primary hypertension Qualified Code(s): I10 - Essential (primary) hypertension Plan to address problem: Continue antihypertensives (3) Arthritis Status: Acute Plan to address problem: On nonsteroidals (4) Seizure disorder Status: Acute (5) HIV (human immunodeficiency virus infection) Status: Chronic Qualifiers: HIV symptom status: asymptomatic, with no history of HIV-related illness Qualified Code(s): Z21 - Asymptomatic human immunodeficiency virus [HIV] infection status Plan to address problem: Continue antiretrovirals (6) Statin myopathy Status: Acute Plan to address problem: Stop the statins Check CPK and aldolase (7) Hypokalemia Status: Acute Plan to address problem: Supplemented (8) Hypomagnesemia Status: Acute Plan to address problem: Supplemented (9) Hypocalcemia Status: Acute Plan to address problem: Supplemented (10) DVT prophylaxis Status: Acute Plan to address problem: On heparin and GI prophylaxis Subjective Date of service: 02/07/21 Principal diagnosis: Recurrent falls and severe debility Interval history: 76-year-old -[place] female with history of hypertension, arthritis, seizures, early dementia and hyperlipidemia on statins comes in for frequent falls. Patient has a walker but has been falling frequently over the last 1 week. Patient had nausea vomiting and diarrhea couple days ago which resolved by itself. She attributed to food poisoning. As per the daughter patient has been sleeping a lot and not wanting to get out of bed. Also frequent falls and urinary incontinence. Patient ambulates with a cane and sometimes uses walker. Patient is vaccinated With COVID-19 vaccine. Her primary care physician is Dr. Arciniega. No fever or chills. 02/06/2021 Patient feels stronger Statin stopped Electrolytes corrected including potassium and magnesium 02/07/2021 Patient feels stronger Agrees with home physical therapy Objective - Constitutional Vitals: Vital Signs - 12hr 02/07/21 02/07/21 02/07/21 05:52 08:01 09:08 Temperature 97.6 F 97.7 F Pulse Rate 60 55 L Pulse Rate [ Bilateral Throughout] Respiratory 20 20 Rate Respiratory Rate [Bilateral Throughout] Blood Pressure 151/76 155/66 O2 Sat by Pulse 96 94 96 Oximetry 02/07/21 02/07/21 02/07/21 09:12 09:20 09:21 Temperature Pulse Rate 55 L 55 L Pulse Rate [ 60 Bilateral Throughout] Respiratory Rate Respiratory 18 Rate [Bilateral Throughout] Blood Pressure 155/66 155/66 O2 Sat by Pulse Oximetry 02/07/21 11:52 Temperature 98.7 F Pulse Rate 59 L Pulse Rate [ Bilateral Throughout] Respiratory 18 Rate Respiratory Rate [Bilateral Throughout] Blood Pressure 132/68 O2 Sat by Pulse 90 Oximetry General appearance: Present: no acute distress, well-nourished - EENT Eyes: PERRL, EOM intact ENT: hearing intact, clear oral mucosa Ears: bilateral: normal - Neck Neck: supple, normal ROM - Respiratory Respiratory effort: normal Respiratory: bilateral: CTA - Breasts Breasts: normal - Cardiovascular Heart rate: 78 Rhythm: regular Heart Sounds: Present: S1 & S2. Absent: gallop, rub Extremities: pulses intact, No edema, normal color, Full ROM - Gastrointestinal General gastrointestinal: Present: soft, non-tender, non-distended, normal bowel sounds - Genitourinary Female genitourinary: normal - Integumentary Integumentary: clear, warm, dry - Musculoskeletal Musculoskeletal: generalized weakness (power is 5 -/5 both lower extremities) - Neurologic Neurologic: moves all extremities - Psychiatric Psychiatric: memory intact, appropriate mood/affect, intact judgment & insight - Labs CBC & Chem 7: 02/07/21 04:34 02/07/21 04:34 Labs: Abnormal lab results 02/07/21 02/07/21 Range/Units 04:34 04:34 RDW 16.2 H (13.2-15.2) % Lymph % (Auto) 11.6 L (13.4-35.0) % Lymph # (Auto) 0.8 L (1.2-5.4) K/mm3 Seg Neutrophils % 83.1 H (40.0-70.0) % Carbon Dioxide 21 L (22-30) mmol/L Glucose 215 H (65-100) mg/dL Phosphorus 1.20 L (2.5-4.5) mg/dL Albumin 3.0 L (3.9-5) g/dL HEART Score - HEART Score Troponin: Troponin T < 0.010 ng/mL (0.00-0.029) 02/05/21 16:56
[2021-02-08] MEDS: methylPREDNISolone Sod Succinate 40 MG/1 ML INJ IV SCH (05:39)
[2021-02-08] MEDS: IPRATROPIUM/ALBUTEROL SULFATE 3 ML AMPUL.NEB IH SCH (08:07)
[2021-02-08] MEDS: carBAMazepine 200 MG TAB PO SCH (09:39)
[2021-02-08] MEDS: NORTRIPTYLINE 25 MG CAP PO SCH (09:39)
[2021-02-08] MEDS: EMTRICITABINE 200 MG CAP PO SCH (09:39)
[2021-02-08] MEDS: DOLUTEGRAVIR 50 MG TAB PO SCH (09:39)
[2021-02-08] MEDS: METOPROLOL TARTRATE 25 MG TAB PO SCH (09:40)
[2021-02-08] MEDS: amLODIPine 10 MG TAB PO SCH (09:40)
[2021-02-08] MEDS: FAMOTIDINE 20 MG/2 ML INJ IV SCH (09:40)
[2021-02-08] MEDS: HEPARIN 5,000 UNIT/1 ML VIAL SUB-Q SCH (09:41)
[2021-02-08 11:17] VITALS: BP 143/52
--- NOTE | 2021-02-08 16:25 | Discharge Summary ---
Providers - Providers Date of Admission: 02/05/21 19:54 Date of discharge: 02/08/21 Attending physician: RAJESH HAMILTON 02/05/21 Consult to Case Management [CONS] Routine Services Needed at Discharge: Home Health Services Physical Therapy Notified:: cm notified 02/05/21 21:39 Physical Therapy Evaluation and Treat [CONS] Routine Comment: Reason For Exam: debility 02/05/21 21:43 Consult to Physician [CONS] Routine Comment: Consulting Provider: DANIEL MARISCAL Physician Instructions: Reason For Exam: Antiretrovirals and myopathy Primary care physician: BOOKING SUPERVISOR Hospitalization Condition: Fair Hospital course: Subjective Date of service: 02/08/21 Principal diagnosis: Recurrent falls and severe debility Interval history: 76-year-old -[place] female with history of hypertension, arthritis, seizures, early dementia and hyperlipidemia on statins comes in for frequent falls. Patient has a walker but has been falling frequently over the last 1 week. Patient had nausea vomiting and diarrhea couple days ago which resolved by itself. She attributed to food poisoning. As per the daughter patient has been sleeping a lot and not wanting to get out of bed. Also frequent falls and urinary incontinence. Patient ambulates with a cane and sometimes uses walker. Patient is vaccinated With COVID-19 vaccine. Her primary care physician is Dr. Arciniega. No fever or chills. 02/06/2021 Patient feels stronger Statin stopped Electrolytes corrected including potassium and magnesium 02/07/2021 Patient feels stronger Agrees with home physical therapy 02/08/2021 Patient feels stronger Willing to go home Home physical therapy to continue - Patient Problems (1) Recurrent falls Status: Acute Plan to address problem: Possible myopathy secondary to statins Check CK and aldolase Physical therapy initiated (2) Hypertension Status: Chronic Qualifiers: Hypertension type: primary hypertension Qualified Code(s): I10 - Essential (primary) hypertension Plan to address problem: Continue antihypertensives (3) Arthritis Status: Acute Plan to address problem: On nonsteroidals (4) Seizure disorder Status: Acute (5) HIV (human immunodeficiency virus infection) Status: Chronic Qualifiers: HIV symptom status: asymptomatic, with no history of HIV-related illness Qualified Code(s): Z21 - Asymptomatic human immunodeficiency virus [HIV] infection status Plan to address problem: Continue antiretrovirals (6) Statin myopathy Status: Acute Plan to address problem: Stop the statins (7) Hypokalemia Status: Acute Plan to address problem: Supplemented (8) Hypomagnesemia Status: Acute Plan to address problem: Supplemented (9) Hypocalcemia Status: Acute Plan to address problem: Supplemented (10) DVT prophylaxis Status: Acute Plan to address problem: On heparin and GI prophylaxis Disposition: TO HOME OR SELFCARE Final Discharge Diagnosis (Prints w/discharge instructions): Severe debility. Recurrent falls. Statin myopathy. Hypokalemia. Hypomagnesemia. Hypertension - Discharge Diagnoses (1) Recurrent falls Status: Acute (2) Hypertension Status: Chronic Qualifiers: Hypertension type: primary hypertension Qualified Code(s): I10 - Essential (primary) hypertension (3) Arthritis Status: Acute (4) Seizure disorder Status: Acute (5) HIV (human immunodeficiency virus infection) Status: Chronic Qualifiers: HIV symptom status: asymptomatic, with no history of HIV-related illness Qualified Code(s): Z21 - Asymptomatic human immunodeficiency virus [HIV] infection status (6) Statin myopathy Status: Acute (7) Hypokalemia Status: Acute (8) Hypomagnesemia Status: Acute (9) Hypocalcemia Status: Acute (10) DVT prophylaxis Status: Acute Core Measure Documentation - Palliative Care Palliative Care/ Comfort Measures: Not Applicable - Core Measures Any of the following diagnoses?: none Exam - Constitutional Vitals: Temp Pulse Resp BP Pulse Ox 97.9 F 67 16 143/52 93 02/08/21 10:56 02/08/21 10:56 02/08/21 10:56 02/08/21 10:56 02/08/21 10:56 General appearance: Present: no acute distress, well-nourished - EENT Eyes: Present: PERRL ENT: hearing intact, clear oral mucosa - Neck Neck: Present: supple, normal ROM - Respiratory Respiratory effort: normal Respiratory: bilateral: CTA - Cardiovascular Heart rate: 78 Rhythm: regular Heart Sounds: Present: S1 & S2. Absent: rub, click - Extremities Extremities: pulses symmetrical, No edema Peripheral Pulses: within normal limits - Abdominal General gastrointestinal: Present: soft, non-tender, non-distended, normal bowel sounds Female genitourinary: Present: normal - Integumentary Integumentary: Present: clear, warm, dry - Musculoskeletal Musculoskeletal: gait normal, strength equal bilaterally - Psychiatric Psychiatric: appropriate mood/affect, intact judgment & insight - Neurologic Neurologic: CNII-XII intact, moves all extremities Plan Activity: no restrictions Weight Bearing Status: Weight Bear as Tolerated Special Instructions: physical therapy, occupational therapy, home health RN Follow up with: PRIMARY CARE,MD [Primary Care Provider] - 3-5 Days Prescriptions: amLODIPine 10 mg PO DAILY #30 tablet Metoprolol [Lopressor TAB] 25 mg PO BID #60 tablet Magnesium Oxide 400 mg PO QDAY 30 Days #30 tablet Albuterol Mdi (or & Nicu Only) [ProAir HFA Inhaler] 2 puff IH QID PRN 30 Days #1 inh PRN Reason: Shortness Of Breath carBAMazepine [TEGretol] 200 mg PO Q12H #60 tablet
== END 2021-02-08 13:50 | disposition home or self-care (01) ==
LOC: ED 12:51 → 3A 19:54 → 3B-SURG 22:28
PROVIDERS: ADMIT Internal Medicine; ATTEND Internal Medicine
DX: I10 Essential (primary) hypertension (principal); R29.6 Repeated falls; M19.90 Unspecified osteoarthritis, unspecified site; R56.9 Unspecified convulsions; G72.89 Other specified myopathies; D72.819 Decreased white blood cell count, unspecified; E83.42 Hypomagnesemia; R53.1 Weakness; E87.6 Hypokalemia; E83.51 Hypocalcemia; R06.02 Shortness of breath; F03.90 Unspecified dementia, unspecified severity, without behavioral disturbance, psychotic disturbance, mood disturbance, and anxiety; Z21 Asymptomatic human immunodeficiency virus [HIV] infection status; Z87.891 Personal history of nicotine dependence
CPT/HCPCS: 36415; 70450; 71045; 72125; 72170; 80053; 81001; 82140; 83036; 83735; 84100; 84443; 84484; 85025; 87086; 93005; 94640; 96361; 96365; 96366; 96372; 96375; 96376; 97161; 99285; G0378; J0610; J1644; J1940; J2920; J2930; J3475; J7030